=== PATIENT | female | born 1980 | race Caucasian/White ===

== ENCOUNTER 2017-03-07 12:35 | Inpatient (IN) | payer MEDICARE ==
--- NOTE | ~2017-03-07 | DS ---
Unit #: [id number] #: [id number] Patient: HEIDI PADRON [id number] [address] [place], [place] [address] [id number] MR#: [id number] NAME: HEIDI PADRON ROOM: 328 Age: 36 Sex: F Admission Date: 03/07/2017 : 1980 Discharge Date: 03/12/2017 Attending Physician: Kain Esquivel M.D. Primary Care Physician: Gonzalo Prado M.D. DISCHARGE SUMMARY HISTORY OF PRESENT ILLNESS/HOSPITAL COURSE Ms. Padron is a 36-year-old female with known severe persistent asthma who presented to the ER on March 07, 2017, with increasing shortness of air and was admitted. She had apparently come by the office and then had some insurance issues and talked to our financial person who simply told her to just stay in touch and apparently was upset and went straight to the ER. She does complain of a cough. It does not look like we were ever able to get a sputum of any value for culture. However, a respiratory pathogen panel was sent and was consistent with parainfluenza virus. She was started on Solu-Medrol 125 IV q.6 which was tapered down. She was started on Zithromax. Solu-Medrol has been decreased and then switched to prednisone 40 mg b.i.d. and now 30 mg p.o. b.i.d. As of March 12, 2017, she is doing better and in my opinion ready for discharge. She still has some other little issues like nausea, but she really wanted to go home. DISCHARGE MEDICATIONS She will be discharged on the following medicines: 1. Albuterol inhaler p.r.n. 2. DuoNebs p.r.n. 3. Prednisone 30 mg p.o. b.i.d. decreasing by 10 mg at night every 3 days until getting to 30 mg daily and then decreasing during the day every 3 days until 20 mg and then staying at 20 mg daily until seen. 4. Nystatin 5 mL swish and swallow q.i.d. 5. Phenergan 25 mg p.o. q.6 p.r.n. 6. Klonopin 0.5 mg t.i.d. That is a home medicine. I did not write it. 7. Montelukast 10 mg p.o. daily. 8. Ultram 50 mg p.o. t.i.d. I did write a prescription for that one. 9. Omeprazole 40 mg p.o. b.i.d. which is a home medicine. I did not write that either. 10. Advair 1 puff b.i.d. which should be a home medicine, and she should have a supply at home. 11. Cefuroxime 500 mg p.o. b.i.d. She does not need home O2. DIET Regular. ACTIVITY As tolerated. FOLLOWUP She should follow up with us in two to three weeks. Unit #: [id number] #: [id number] Patient: HEIDI PADRON IMPRESSION 1. Acute exacerbation of severe persistent asthma. 2. Acute parainfluenza virus. 3. Respiratory infection. 4. Nausea probably because of medication. 1. Dictated by... Clifford Hernandez TD: 03/14/2017 15:06 JOB #: [id number] DISCHARGE SUMMARY Page 1 of 1 X Wilton Nava MD X DISCHARGE SUMMARY
--- NOTE | ~2017-03-07 | CR72 ---
[facility] A Service of [facility] RADIOLOGY TEXT RESULTS PATIENT: HEIDI FUENTES LOCATION: A 328-01 : 80 UNIT #: [id number] AGE: [address]: Ty Esquivel MD SEX: F ORDER DR: [id number] [facility] [address] [place], [place] [address] [id number] MR#: [id number] Acc #: [id number] NAME: HEIDI FUENTES : 1980 SEX: F STUDY DATE/TIME: 03/07/2017 12:51 UNIT: [facility] ROOM: STUDY DESCRIPTION: CR Chest Single View Portable Attending Physician: Zak Baeza M.D. Ordering Physician: Zak Baeza M.D. Primary Care Physician: Gonzalo Prado M.D. MEDICAL IMAGING REPORT This report is preliminary unless electronic signature is present EXAM Portable chest x-ray, 03/07/2017. HISTORY Cough, short of air, asthma, getting breathing treatment today. TECHNIQUE AP radiograph of the chest is compared to study dated 10/29/2014. FINDINGS Bilateral old healed rib fractures. Posterolateral healed rib fractures on the left at ribs 5, 6, 7, 8, and 10 and old healed left posterolateral 8 rib fracture. No acute-appearing bony abnormality. The heart is normal in size. The inferior right heart margin is ill-defined and this is felt secondary to prominent epicardial fat pad at this location. There is no evidence of acute infectious or inflammatory disease, pleural effusion, or pneumothorax. No suspicious nodule. Dictated by... Supa Najera M.D. THIS IS AN ELECTRONICALLY VERIFIED REPORT Supa Najera M.D. at 03/08/2017 3:51 PM KAITY/jamal TD: 03/07/2017 15:05 JOB #: [id number] MEDICAL IMAGING REPORT Page 1 of 1 COPY
[~2017-03-07 12:35] MED LIST: ACETAMINOPHEN650 M3 PO; ADVAIR 500-501 EACH IH; ALBUTEROL17 G1 IH; ALBUTEROL17 GM; ALBUTEROL17 GM INH; ALDACTONE PO; ALDACTONE25 MG PO; AZITHROMYCIN500 MG PO; CELEXA10 MG PO; CLONAZEPAM0.5 MG PO; COMBIVENT U/D3 ML INH; DOXYCYCLINE PO; DUONEB 2.5-0.5 M3 ML NEB; FLONASE16 GM; FLUOXETINE HCL20 M1 PO; GUAIFENESIN LA600 M1 PO; HUMIBID1200 MG PO; IPRATROPIUM0.2 MG/ML NEB; KLONOPIN0.5 MG PO; KLONOPIN1 MG PO; LASIX20 MG PO; LEVAQUIN PO; LOMOTIL WHITE2.5 M1 PO; MEDROL PO; METAMUCIL SMOOT1 PKT DOB; METHOTREXATE2.5 MG PO; MILK OF MAGNESIA PO; MINI NEBS; MINOCIN100 M1 PO; MOTRIN100 MG PO; NASONEX17 GM; NILSTAT PO; NORVASC PO; NORVASC2.5 MG PO; NYSTATIN5 ML PO; OMEPRAZOLE40 M1 PO; PERCOCET5/325 PO; PHENERGAN12.5 MG PO; PHENERGAN25 M1 PO; PREDNISONE PO; PREDNISONE10 MG PO; PROTONIX PO; PROZAC PO; PROZAC10 M1 PO; PULMICORT180 MCG/A1; REGLAN5 MG PO; SARAFEM20 MG PO; SENNA PO; SENNA8.6 M2 PO; SINGULAIR PO; SPIRIVA18 MCG INH; SYMBICORT; SYMBICORT INH; SYMBICORT80 INH; TALWIN NX TABLE1 TAB PO; THEO-DUR300 MG PO; THEOPHYLLIN PO; VENTOLIN; VICODIN PO; XOLAIR150 MG/1.2 INJ; ZITHROMAX PO; ZOFRAN ODT4 MG PO; ZOFRAN PO; ZYRTEC5 M2 PO; ZYRTEC5 M4 PO
[2017-03-07 13:09] LABS: BASOPHIL% 0.3 % (0-2.5); HEMATOCRIT 43.7 % (35.0-45.0); HEMOGLOBIN 14.9 gm/dL (12.0-16.0); LYMPHOCYTE# 0.6 X10e3 (1.0-3.5); LYMPHOCYTE% 6.3 % (17.0-45.0); MEAN CELL VOLUME 98.3 FL (83-96); MEAN CORPUSCULAR HEMOGLOBIN 33.4 PG (28-34); MEAN PLATELET VOLUME 6.9 FL (6.5-11.5); MONOCYTE# 0.8 X10e3 (0-1.0); NEUTROPHIL# 7.6 X10e3 (1.5-7.1); NEUTROPHIL% 84.4 % (40-75); PLATELET COUNT 324 X10e3 (140-420); RED BLOOD COUNT 4.44 X10e (3.90-5.30); RED CELL DISTRIBUTION WIDTH 12.5 % (11.0-15.5)
[2017-03-07 13:11] LABS: DIFF IND NO
[2017-03-07 14:01] LABS: ALBUMIN SERUM 4.7 g/dL (3.5-5.0); BILIRUBIN, DIRECT 0.1 mg/dL (0.0-0.2); BILIRUBIN,INDIRECT 0.7 mg/dL (0.0-0.9); BILIRUBIN,TOTAL 0.8 mg/dL (0.2-2.0); BUN/CREATININE RATIO 6.25; CALCIUM SERUM 9.3 mg/dL (8.4-10.2); CREATININE SERUM 0.8 mg/dL (0.6-1.4); GLOM FILT RATE Estimated 94.9 mL/min (>60); POTASSIUM 3.7 mmol/L (3.5-5.1); PROTEIN TOTAL SERUM 7.6 g/dL (6.0-8.3)
[2017-03-07] MEDS ORDERED: CLONAZEPAM0.5 MG PO (19:33)
[2017-03-07] MEDS ORDERED: SINGULAIR PO (19:33)
[2017-03-07] MEDS ORDERED: ALBUTEROL17 GM INH (19:35)
[2017-03-07] MEDS ORDERED: OMEPRAZOLE40 M1 PO (19:37)
[2017-03-07] MEDS ORDERED: DELTASONE20 MG PO (19:37)
[2017-03-07] MEDS ORDERED: VENTOLIN PRN (19:38)
[2017-03-07] MEDS ORDERED: ADVAI (19:38)
[2017-03-09 07:36] LABS: ALBUMIN SERUM 3.9 g/dL (3.5-5.0); BILIRUBIN,TOTAL 0.5 mg/dL (0.2-2.0); BUN/CREATININE RATIO 15.71; CALCIUM SERUM 9.2 mg/dL (8.4-10.2); CREATININE SERUM 0.7 mg/dL (0.6-1.4); GLOM FILT RATE Estimated 111.5 mL/min (>60); POTASSIUM 3.4 mmol/L (3.5-5.1); PROTEIN TOTAL SERUM 6.3 g/dL (6.0-8.3)
[2017-03-10 08:40] LABS: HEMATOCRIT 38.2 % (35.0-45.0); HEMOGLOBIN 13.1 gm/dL (12.0-16.0); MEAN CELL VOLUME 97.8 FL (83-96); MEAN CORPUSCULAR HEMOGLOBIN 33.5 PG (28-34); MEAN CORPUSCULAR HGB CONC 34.3 g/dL (30-36); MEAN PLATELET VOLUME 7.1 FL (6.5-11.5); RED BLOOD COUNT 3.9 X10e (3.90-5.30); RED CELL DISTRIBUTION WIDTH 12.6 % (11.0-15.5); WHITE BLOOD COUNT 6.2 X10e3 (4.0-10.5)
[2017-03-11 06:57] LABS: BUN/CREATININE RATIO 12.85; CALCIUM SERUM 8.5 mg/dL (8.4-10.2); CREATININE SERUM 0.7 mg/dL (0.6-1.4); GLOM FILT RATE Estimated 111.5 mL/min (>60); POTASSIUM 3.2 mmol/L (3.5-5.1)
[2017-03-12 06:41] LABS: BUN/CREATININE RATIO 12.85; CALCIUM SERUM 8.8 mg/dL (8.4-10.2); CREATININE SERUM 0.7 mg/dL (0.6-1.4); GLOM FILT RATE Estimated 111.5 mL/min (>60); POTASSIUM 3.2 mmol/L (3.5-5.1)
[2017-03-12] MEDS ORDERED: COMBIVENT U/D3 M2 INH (16:58)
[2017-03-12] MEDS ORDERED: PREDNISONE (17:00)
[2017-03-12] MEDS ORDERED: NILSTAT PO (17:01)
[2017-03-12] MEDS ORDERED: PHENERGAN25 MG PO (17:03)
[2017-03-12] MEDS ORDERED: HUMIBID-LA600 MG PO (17:04)
[2017-03-12] MEDS ORDERED: ULTRAM PO (17:06)
[2017-03-12] MEDS ORDERED: TUMS500 MG PO (17:07)
[2017-03-12] MEDS ORDERED: ADVAIR 250-501 EAC1 INH (17:08)
[2017-03-12] MEDS ORDERED: CEFUROXIME250 M1 PO (17:08)
== END 2017-03-12 18:01 | disposition home or self-care (01) | DRG 865 ==
LOC: CED 12:35 → CEDOF 15:40 → CED 15:40 → C3A PCU 15:40 → CED 16:52 → C3A PCU 16:52 → CEDOF 16:52 → C3A PCU 19:50
PROVIDERS: Emergency Medicine; Internal Medicine Pulmonary Disease
DX: B34.8 Other viral infections of unspecified site (principal); J96.00 Acute respiratory failure, unspecified whether with hypoxia or hypercapnia; J45.901 Unspecified asthma with (acute) exacerbation; R11.0 Nausea; F41.9 Anxiety disorder, unspecified
CPT/HCPCS: 36415; 71010; 80048; 80053; 80076; 82308; 82947; 83605; 85025; 85027; 87040; 87070; 87633; 94640; 94644; 94664; 94760; 96374; 96375; 99291; J0456; J1650; J1885; J2405; J2550; J2920; J2930